=== PATIENT | female | born 1950 | race African-American/Black ===

== ENCOUNTER 2018-12-16 23:32 | Emergency (ER) | payer BC, OTHER ==
[2018-12-17 00:25] LABS: Absolute Lymphocytes (CBC) 2.7 K/uL (0.7-4.9); Absolute Monocytes 0.6 K/uL (0.1-1.3); Absolute Neutrophil 9.4 K/uL (1.8-8.0); Basophils % 0.7 % (0-1.3); Eosinophils % 2.4 % (0-4.4); Hematocrit 40.7 % (36.0-45.0); Lymphocytes % 20.4 % (15.3-44.8); MPV 10.5 fL (7.6-11.3); Monocytes % 4.7 % (3.3-12.3); RBC Red Blood Cell Count 4.55 M/uL (3.86-4.86)
[2018-12-17 00:26] LABS: Protime INR 0.89
[2018-12-17] MEDS ORDERED: ONDANSETRON 4 MG/2 ML VIAL ONE (00:29)
[2018-12-17] MEDS ORDERED: MEPERIDINE HCL 50 MG/ML AMP ONE (00:29)
[2018-12-17 00:55] LABS: ALT/SGPT 17 U/L (12-78); AST/SGOT 14 U/L (15-37); Albumin 3.5 g/dL (3.4-5.0); Alkaline Phosphatase 100 U/L (45-117); BUN Blood Urea Nitrogen 15 mg/dL (7-18); Bicarbonate 25 mmol/L (21-32); Bilirubin Direct < 0.1 mg/dL (0-0.2); Bilirubin Total 0.2 mg/dL (0.2-1.0); Glucose Level 46 mg/dL (74-106); Magnesium 1.7 mg/dL (1.8-2.4); NT PRO-BNP 50 pg/mL (<125); Potassium 3.2 mmol/L (3.5-5.1); Protein, Total 7.1 g/dL (6.4-8.2); Sodium Level 144 mmol/L (136-145); Troponin (Emerg Dept Use Only) < 0.02 ng/mL (0.0-0.045)
[2018-12-17] MEDS ORDERED: D50W 25 GM/50 ML SYRINGE IV ONE (01:11)
[2018-12-17] MEDS ORDERED: POTASSIUM CL SA 10 MEQ TAB PO ONE (01:27)
--- NOTE | 2018-12-17 02:21 | EDPHYS ---
Physician Documentation [facility] Name: Dinorah Riddle Age: 68 yrs Sex: Female : 1950 Arrival Date: 12/16/2018 Time: 23:32 Bed 28 Private MD: Olivier Fuentes ED Physician Luis Enrique Street HPI: 12/17 00:03 This 68 yrs old Black Female presents to ER via Wheelchair with complaints of Chest pkl Tightness, High Blood Pressure. 00:03 The patient or guardian reports chest pain that is located primarily in the substernal pkl area. Onset: just prior to arrival. The pain does not radiate. Associated signs and symptoms: Pertinent positives: cough, headache. The chest pain is described as tightness. Historical: - Allergies: 12/16 23:38 Codeine; aa1 - Home Meds: 23:38 Metformin Oral [Active]; glyburide Oral [Active]; losartan oral oral [Active]; aa1 Triamterene-Hydrochlorothiazid Oral [Active]; - PMHx: 23:38 Hypertension; Diabetes - NIDDM; Lupus; Rheumatoid Arthritis; aa1 - PSHx: 23:38 left ovary removed; D\T\C; Carpal Tunnel Repair; aa1 - Immunization history:: Flu vaccine is up to date. - Social history:: Smoking status: Patient uses tobacco products, denies chronic smoking, but will smoke occasionally. - Ebola Screening: : No symptoms or risks identified at this time. ROS: 12/17 00:03 Eyes: Negative for injury, pain, redness, and discharge, ENT: Negative for injury, pkl pain, and discharge, Neck: Negative for injury, pain, and swelling. Cardiovascular: Positive for chest pain. Respiratory: Positive for cough, with no reported sputum. Abdomen/GI: Negative for abdominal pain, nausea, vomiting, and diarrhea. Back: Negative for injury or acute deformity. : Negative for urinary symptoms. MS/extremity: Negative for acute changes. Skin: Negative for rash. Neuro: Negative for altered mental status. Exam: 00:03 Head/Face: Normocephalic, atraumatic. Eyes: Pupils equal round and reactive to light, pkl extra-ocular motions intact. Lids and lashes normal. Conjunctiva and sclera are non-icteric and not injected. Cornea within normal limits. Periorbital areas with no swelling, redness, or edema. ENT: Nares patent. No nasal discharge, no septal abnormalities noted. Tympanic membranes are normal and external auditory canals are clear. Oropharynx with no redness, swelling, or masses, exudates, or evidence of obstruction, uvula midline. Mucous membranes moist. Neck: Trachea midline, no thyromegaly or masses palpated, and no cervical lymphadenopathy. Supple, full range of motion without nuchal rigidity, or vertebral point tenderness. No Meningismus. Chest/axilla: Normal chest wall appearance and motion. Nontender with no deformity. No lesions are appreciated. Cardiovascular: Regular rate and rhythm with a normal S1 and S2. No gallops, murmurs, or rubs. Normal PMI, no JVD. No pulse deficits. Respiratory: Lungs have equal breath sounds bilaterally, clear to auscultation and percussion. No rales, rhonchi or wheezes noted. No increased work of breathing, no retractions or nasal flaring. Abdomen/GI: Soft, non-tender, with normal bowel sounds. No distension or tympany. No guarding or rebound. No evidence of tenderness throughout. Back: No spinal tenderness. No costovertebral tenderness. Full range of motion. Skin: Warm, dry with normal turgor. Normal color with no rashes, no lesions, and no evidence of cellulitis. MS/ Extremity: Pulses equal, no cyanosis. Neurovascular intact. Full, normal range of motion. Neuro: Awake and alert, GCS 15, oriented to person, place, time, and situation. Cranial nerves II-XII grossly intact. Motor strength 5/5 in all extremities. Sensory grossly intact. Cerebellar exam normal. Normal gait. Vital Signs: 12/16 23:38 BP 141 / 86; Pulse 105; Resp 18; Temp 97.4; Pulse Ox 97% on R/A; Weight 81.65 kg; aa1 Height 5 ft. 2 in. (157.48 cm); Pain 6/10; 12/17 01:04 BP 129 / 78; Pulse 75; Resp 18; Temp 98.8(O); Pulse Ox 99% on R/A; mg2 02:46 BP 122 / 78; Pulse 80; Resp 18; Temp 98.5; Pulse Ox 100% on R/A; Pain 0/10; mg2 12/16 23:38 Body Mass Index 32.92 (81.65 kg, 157.48 cm) aa MDM: 12/16 23:41 Patient medically screened. pkl 12/17 02:18 Data reviewed: vital signs, nurses notes, lab test result(s), EKG, radiologic studies, pkl plain films. 02:22 ED course: Patient feeling better. Advised to hold ( Glyburide ) regarding hypoglycemic pkl tendency. To follow up with Dr. Fuentes in 1 to 2 days for further evaluations. Patient understood instructions. 12/16 23:40 Order name: Basic Metabolic Panel aa 12/16 23:40 Order name: CBC with Diff; Complete Time: 01:04 aa 12/16 23:40 Order name: LFT's; Complete Time: 01:04 aa 12/16 23:40 Order name: Magnesium; Complete Time: 01:04 aa 12/16 23:40 Order name: NT PRO-BNP; Complete Time: 01:04 aa 12/16 23:40 Order name: PT-INR; Complete Time: 01:04 aa 12/16 23:40 Order name: Troponin (emerg Dept Use Only); Complete Time: 01:04 aa1 12/16 23:40 Order name: XRAY Chest (1 view) aa 12/16 23:41 Order name: Basic Metabolic Panel; Complete Time: 01:04 EDMS 12/17 01:11 Order name: Troponin (emerg Dept Use Only); Complete Time: 02:17 mg2 12/17 02:46 Order name: Glucose, Ancillary Testing; Complete Time: 02:58 EDMS 12/17 02:46 Order name: Glucose, Ancillary Testing EDMS 12/17 02:46 Order name: Glucose, Ancillary Testing; Complete Time: 02:58 EDMS 12/16 23:40 Order name: EKG; Complete Time: 23:41 aa12/16 23:40 Order name: Cardiac monitoring; Complete Time: 00:39 aa 12/16 23:40 Order name: EKG - Nurse/Tech; Complete Time: 00:39 aa 12/16 23:40 Order name: IV Saline Lock; Complete Time: 00:11 aa12/16 23:40 Order name: Labs collected and sent; Complete Time: 00:11 aa12/16 23:40 Order name: O2 Per Protocol; Complete Time: 00:11 12/16 23:40 Order name: O2 Sat Monitoring; Complete Time: 00:12 aa12/17 01:11 Order name: EKG - Nurse/Tech; Complete Time: :34 mg2 Administered Medications: 00:15 Drug: Demerol 50 mg Route: IVP; Site: left forearm; mg2 02:12 Follow up: Response: No adverse reaction; Marked relief of symptoms mg2 00:15 Drug: Zofran 4 mg Route: IVP; Site: left forearm; mg2 02:12 Follow up: Response: No adverse reaction; Marked relief of symptoms mg2 01:07 Drug: D50W 25 ml Route: IVP; Site: left forearm; mg2 02:12 Follow up: Response: No adverse reaction; Blood sugar is elevated mg2 01:34 Drug: K-Dur 40 mEq Route: PO; mg2 02:12 Follow up: Response: No adverse reaction mg2 02:45 Drug: D50W 25 ml Route: IVP; Site: left forearm; mg2 02:45 Follow up: Response: No adverse reaction; Medication administered at discharge. mg2 Point of Care Testing: Blood Glucose: 01:04 Blood Glucose: 44 mg/dL; mg2 01:04 Blood Glucose: 120 mg/dL; mg2 02:46 Blood Glucose: 80 mg/dL; mg2 Ranges: Critical Glucose Levels:Adult <50 mg/dl or >400 mg/dl <40 mg/dl or >180 mg/dl Disposition: 12/17/18 02:20 Discharged to Home. Impression: Chest pain. Acute headache. Sinusitis. Hypogycemia. - Condition is Stable. - Prescriptions for Augmentin 875- 125 mg Oral Tablet - take 1 tablet by ORAL route every 12 hours for 10 days; 20 tablet. Ultram 50 mg Oral Tablet - take 1 tablet by ORAL route every 8 hours As needed; 20 tablet. - Medication Reconciliation Form, Thank You Letter, Antibiotic Education, Prescription Opioid Use form. - Follow up: Olivier Fuentes MD; When: 1 - 2 days; Reason: Re-evaluation by your physician. - Problem is new. - Symptoms have improved. Signatures: Dispatcher [employer] EDKasey Daniels RN RN aa1 Luis Enrique Street MD MD pkl Gardose, Oz, RN RN mg2 Corrections: (The following items were deleted from the chart) 02:50 02:20 12/17/2018 02:20 Discharged to Home. Impression: Chest pain. Acute headache. mg2 Sinusitis. Hypogycemia. Condition is Stable. Forms are Medication Reconciliation Form, Thank You Letter, Antibiotic Education, Prescription Opioid Use. Follow up: Olivier Fuentes; When: 1 - 2 days; Reason: Re-evaluation by your physician. Problem is new. Symptoms have improved. pkl
--- NOTE | 2018-12-17 02:21 | ER ---
Nurse's Notes [facility] Name: Dinorah Riddle Age: 68 yrs Sex: Female : 1950 Arrival Date: 12/16/2018 Time: 23:32 Bed 28 Private MD: Olivier Fuentes Diagnosis: Chest pain. Acute headache. Sinusitis. Hypogycemia Presentation: 12/16 23:35 Presenting complaint: Patient states: cough and tightness in chest and head for past aa1 several days. Transition of care: patient was not received from another setting of care. Onset of symptoms was December 14, 2018. Risk Assessment: Do you want to hurt yourself or someone else? Patient reports no desire to harm self or others. Initial Sepsis Screen: Does the patient meet any 2 criteria? No. Patient's initial sepsis screen is negative. Does the patient have a suspected source of infection? No. Patient's initial sepsis screen is negative. Care prior to arrival: None. 23:35 Method Of Arrival: Wheelchair aa1 23:35 Acuity: KEVON 2 aa1 Triage Assessment: 23:38 General: Appears in no apparent distress. comfortable, Behavior is calm, cooperative, aa1 appropriate for age. Historical: - Allergies: 23:38 Codeine; aa1 - Home Meds: 23:38 Metformin Oral [Active]; glyburide Oral [Active]; losartan oral oral [Active]; aa1 Triamterene-Hydrochlorothiazid Oral [Active]; - PMHx: 23:38 Hypertension; Diabetes - NIDDM; Lupus; Rheumatoid Arthritis; aa1 - PSHx: 23:38 left ovary removed; D\T\C; Carpal Tunnel Repair; aa1 - Immunization history:: Flu vaccine is up to date. - Social history:: Smoking status: Patient uses tobacco products, denies chronic smoking, but will smoke occasionally. - Ebola Screening: : No symptoms or risks identified at this time. Screenin/07 00:48 Abuse screen: Denies threats or abuse. Denies injuries from another. Nutritional mg2 screening: No deficits noted. Tuberculosis screening: No symptoms or risk factors identified. Fall Risk IV access (20 points). Assessment: 00:44 General: Appears in no apparent distress. comfortable, Behavior is calm, cooperative. mg2 Pain: Complains of pain in chest Pain radiates to left arm Pain currently is 4 out of 10 on a pain scale. Quality of pain is described as aching, Pain began gradually, 2 hours ago. Is intermittent. Neuro: Level of Consciousness is awake, alert, obeys commands, Oriented to person, place, time, situation. Cardiovascular: Chest pain is described as mild, quality is pressure, is located in anterior radiates to left arm(s) began suddenly, 2 hours prior to arrival. Respiratory: Airway is patent Respiratory effort is even, unlabored, Respiratory pattern is regular, symmetrical. GI: Reports nausea. : No signs and/or symptoms were reported regarding the genitourinary system. EENT: No signs and/or symptoms were reported regarding the EENT system. Derm: Skin is intact, is healthy with good turgor, Skin is pink, warm \T\ dry. normal. Musculoskeletal: Circulation, motion, and sensation intact. Capillary refill < 3 seconds. 02:13 Reassessment: Patient appears in no apparent distress at this time. Patient and/or mg2 family updated on plan of care and expected duration. Pain level reassessed. Patient is alert, oriented x 3, equal unlabored respirations, skin warm/dry/pink. 02:49 Reassessment: Patient states feeling better. Patient states symptoms have improved. mg2 Vital Signs: 12/16 23:38 BP 141 / 86; Pulse 105; Resp 18; Temp 97.4; Pulse Ox 97% on R/A; Weight 81.65 kg; aa1 Height 5 ft. 2 in. (157.48 cm); Pain 6/10; 12/17 01:04 BP 129 / 78; Pulse 75; Resp 18; Temp 98.8(O); Pulse Ox 99% on R/A; mg2 02:46 BP 122 / 78; Pulse 80; Resp 18; Temp 98.5; Pulse Ox 100% on R/A; Pain 0/10; mg2 12/16 23:38 Body Mass Index 32.92 (81.65 kg, 157.48 cm) aa1 ED Course: 12/16 23:32 Patient arrived in ED. ds1 23:33 Olivier Fuentes MD is Private Physician. ds1 23:36 Triage completed. aa1 23:38 Arm band placed on right wrist. Patient placed in an exam room, on a stretcher. aa1 23:[address] MD is Attending Physician. pkl 23:45 Oz Gonzalez RN is Primary Nurse. mg2 05/07 00:02 XRAY Chest (1 view) In Process Unspecified. EDMS 00:11 CBC with Diff Sent. mg2 00:48 No provider procedures requiring assistance completed. Inserted saline lock: 22 gauge mg2 in left forearm, using aseptic technique. Blood collected. Patient maintains SpO2 saturation greater than 95% on room air. 00:49 Patient has correct armband on for positive identification. Pulse ox on. NIBP on. mg2 02:19 Olivier Fuentes MD is Referral Physician. pkl 02:49 IV discontinued, intact, bleeding controlled, No redness/swelling at site. Pressure mg2 dressing applied. Administered Medications: 00:15 Drug: Demerol 50 mg Route: IVP; Site: left forearm; mg2 02:12 Follow up: Response: No adverse reaction; Marked relief of symptoms mg2 00:15 Drug: Zofran 4 mg Route: IVP; Site: left forearm; mg2 02:12 Follow up: Response: No adverse reaction; Marked relief of symptoms mg2 01:07 Drug: D50W 25 ml Route: IVP; Site: left forearm; mg2 02:12 Follow up: Response: No adverse reaction; Blood sugar is elevated mg2 01:34 Drug: K-Dur 40 mEq Route: PO; mg2 02:12 Follow up: Response: No adverse reaction mg2 02:45 Drug: D50W 25 ml Route: IVP; Site: left forearm; mg2 02:45 Follow up: Response: No adverse reaction; Medication administered at discharge. mg2 Point of Care Testing: Blood Glucose: 01:04 Blood Glucose: 44 mg/dL; mg2 01:04 Blood Glucose: 120 mg/dL; mg2 02:46 Blood Glucose: 80 mg/dL; mg2 Ranges: Outcome: 02:20 Discharge ordered by . pkl 02:49 Discharged to home ambulatory, with family. mg2 02:49 Condition: stable 02:49 Discharge instructions given to patient, family, Instructed on discharge instructions, follow up and referral plans. medication usage, Demonstrated understanding of instructions, follow-up care, medications, Prescriptions given X 2. 02:50 Patient left the ED. mg2 Signatures: Dispatcher [employer] EDMS Kasey Flores RN RN aa1 Luis Enrique Street MD MD pkl Sanford, Demi ds1 Oz Gonzalez, RN RN mg2
[2018-12-17 04:11] VITALS: BP 122/78; TEMP 98.5; O2SAT 100
--- NOTE | 2018-12-17 07:16 | RAD REPORT ---
EXAM DESCRIPTION: RAD - Chest Single View - 12/17/2018 12:01 am CLINICAL HISTORY: Cough and congestion, chest pain COMPARISON: August 2014 TECHNIQUE: AP portable chest image was obtained 2358 hours . FINDINGS: Lungs are clear. Heart and vasculature are normal. No measurable pleural effusion and no p neumothorax. No acute bony abnormality seen. No acute aortic findings suspected. IMPRESSION: No acute cardiopulmonary process. No suspicious change from comparison.
--- NOTE | 2018-12-17 18:26 | EKG ---
Test Date: 2018-12-17 Test Time: 01:29:25 Gumming Machine Operator: MEASUREMENT RESULTS: Intervals: Rate: 82 MT: 168 QRSD: 74 QT: 382 QTc: 446 [place]: P: 60 MT: 168 QRS: -5 T: 28 INTERPRETIVE STATEMENTS: Normal sinus rhythm Normal ECG Compared to ECG 12/17/2018 00:05:55 No significant changes Electronically Signed On 12-17-18 18:23:51 CDT by Ramana Ferreira
--- NOTE | 2018-12-17 18:27 | EKG ---
Test Date: 2018-12-17 Test Time: 00:05:55 Statement Clerks Manager: MEASUREMENT RESULTS: Intervals: Rate: 98 MT: 178 QRSD: 84 QT: 370 QTc: 472 [place]: P: 68 MT: 178 QRS: 6 T: 45 INTERPRETIVE STATEMENTS: Normal sinus rhythm Normal ECG Compared to ECG 03/28/2013 18:21:55 No significant changes Electronically Signed On 12-17-18 18:23:53 CDT by Ramana Ferreira
== END 2018-12-17 02:50 | disposition home or self-care (01) ==
LOC: ER 23:32
DX: J32.9 Chronic sinusitis, unspecified (principal); R51 Headache; E11.649 Type 2 diabetes mellitus with hypoglycemia without coma; I10 Essential (primary) hypertension; Z72.0 Tobacco use; Z88.5 Allergy status to narcotic agent
CPT/HCPCS: 93005 ×2; 85025; 80048; 36415; 83735; 85610; 82962 ×3; 80076; 84484 ×2; 83880; 71045; 96375; 96374; 99284; J2175; J2405

== ENCOUNTER 2019-10-26 22:18 | Emergency (ER) | payer OTHER ==
[2019-10-26] MEDS ORDERED: dexAMETHasone 10 MG/ML VIAL ONE (23:10)
[2019-10-26] MEDS ORDERED: FAMOTIDINE 20 MG/2 ML VIAL IV ONE (23:11)
[2019-10-26 23:13] LABS: Absolute Lymphocytes (CBC) 3.4 K/uL (0.7-4.9); Basophils % 0.7 % (0-1.3); Hematocrit 42.2 % (36.0-45.0); Lymphocytes % 65.6 % (15.3-44.8); MPV 10.7 fL (7.6-11.3); Protime INR 0.97; RBC Red Blood Cell Count 4.62 M/uL (3.86-4.86)
[2019-10-26 23:33] LABS: ALT/SGPT 22 U/L (12-78); AST/SGOT 12 U/L (15-37); Albumin 3.4 g/dL (3.4-5.0); Alkaline Phosphatase 100 U/L (45-117); BUN Blood Urea Nitrogen 18 mg/dL (7-18); Bicarbonate 26 mmol/L (21-32); Bilirubin Direct < 0.1 mg/dL (0-0.2); Bilirubin Total 0.1 mg/dL (0.2-1.0); Glucose Level 176 mg/dL (74-106); Magnesium 1.8 mg/dL (1.8-2.4); NT PRO-BNP 11 pg/mL (<125); Potassium 3.6 mmol/L (3.5-5.1); Protein, Total 7.1 g/dL (6.4-8.2); Sodium Level 143 mmol/L (136-145); Troponin (Emerg Dept Use Only) < 0.02 ng/mL (0.0-0.045)
[2019-10-27 00:01] LABS: Blood Morphology Comment NOTED (NOT SEEN); Platelet Estimate ADEQ; Target Cells 1+
--- NOTE | 2019-10-27 00:01 | ER ---
Nurse's Notes [facility] Name: Dinorah Riddle Age: 69 yrs Sex: Female : 1950 Arrival Date: 10/26/2019 Time: 22:18 Bed 16 Private MD: Diagnosis: Chest pain, unspecified;Allergy to seafood-shrimp;Candidiasis Presentation: 10/25 22:29 Chief complaint: Patient states: she started having chest pressure and tightening of bb her throat after eating some shrimp she took an antihistamine but it is not helping she feels like she is having difficulty breathing. Coronavirus screen: The patient has NOT traveled to a country currently being monitored by the [facility] within the last 14 days. Proceed with normal triage procedures. Ebola Screen: No symptoms or risks identified at this time. Initial Sepsis Screen: Does the patient meet any 2 criteria? No. Patient's initial sepsis screen is negative. Does the patient have a suspected source of infection? No. Patient's initial sepsis screen is negative. Risk Assessment: Do you want to hurt yourself or someone else? Patient reports no desire to harm self or others. Onset of symptoms was October 26, 2019. 22:29 Method Of Arrival: Ambulatory bb 22:29 Acuity: KEVON 2 bb Historical: - Allergies: 22:33 Codeine; bb 22:33 shrimp; bb - Home Meds: 22:33 Metformin Oral [Active]; Ozempic [Active]; telmisartan oral oral [Active]; Naproxen bb Oral [Active]; Antihistamine oral oral [Active]; vitamins [Active]; - PMHx: 22:33 Diabetes - NIDDM; Hypertension; Lupus; Rheumatoid Arthritis; bb - PSHx: 22:33 left ovary removed; D\T\C; Carpal Tunnel Repair; bb - Immunization history:: Adult Immunizations up to date. - Social history:: Smoking status: Patient reports the use of cigarette tobacco products, smokes one-half pack cigarettes per day. Screenin:30 Abuse screen: Denies threats or abuse. Denies injuries from another. Abuse screen:. aa1 Nutritional screening: No deficits noted. Tuberculosis screening: No symptoms or risk factors identified. Fall Risk None identified. Assessment: 22:30 General: Appears in no apparent distress. comfortable, Behavior is calm, cooperative, aa1 appropriate for age. Pain: Complains of pain in chest Pain does not radiate. Pain currently is 2 out of 10 on a pain scale. Quality of pain is described as heavy, Pain began suddenly. Neuro: Level of Consciousness is awake, alert, obeys commands, Oriented to person, place, time, situation, Moves all extremities. Full function Speech is normal. Cardiovascular: Reports chest pain, shortness of breath, Denies diaphoresis, fatigue, lightheadedness, nausea, palpitations, Heart tones S1 S2 present Capillary refill < 3 seconds Clubbing of nail beds is absent JVD is absent Patient's skin is warm and dry. Rhythm is regular Chest pain is described as mild, quality is heaviness, is located in anterior chest wall. Respiratory: Reports shortness of breath at rest Airway is patent Respiratory effort is even, unlabored, Respiratory pattern is regular, symmetrical, Breath sounds are clear bilaterally. the patient has mild shortness of breath. GI: No signs and/or symptoms were reported involving the gastrointestinal system. : No signs and/or symptoms were reported regarding the genitourinary system. EENT: Throat is clear. Derm: Skin is intact, is healthy with good turgor, Skin is pink, warm \T\ dry. Musculoskeletal: Capillary refill < 3 seconds. 23:30 Reassessment: Patient appears in no apparent distress at this time. Patient and/or aa1 family updated on plan of care and expected duration. Pain level reassessed. Patient is alert, oriented x 3, equal unlabored respirations, skin warm/dry/pink. Awaiting lab results Patient states symptoms have improved. 10/26 00:20 Reassessment: Patient appears in no apparent distress at this time. Patient is alert, aa1 oriented x 3, equal unlabored respirations, skin warm/dry/pink. Discussed d/c \T\ f/u instructions with pt; denies questions or concerns at this time. Ambulatory to lobby with steady gait Patient denies pain at this time. Patient states feeling better. Vital Signs: 10/25 22:29 BP 130 / 76; Pulse 94; Resp 16 S; Temp 98.4(O); Pulse Ox 97% on R/A; Weight 80.74 kg bb (R); Height 5 ft. 1 in. (154.94 cm) (R); Pain 0/10; 23:30 BP 115 / 71; Pulse 96; Resp 18; Pulse Ox 97% on R/A; Pain 0/10; aa1 10/26 00:20 BP 135 / 77; Pulse 90; Resp 16; Temp 98.0; Pulse Ox 99% on R/A; Pain 0/10; aa1 10/25 22:29 Body Mass Index 33.63 (80.74 kg, 154.94 cm) bb ED Course: 10/25 22:18 Patient arrived in ED. cl3 22:23 Yevgeniy Delaney, JEMAL is PHCP. pm1 22:24 Ralf Benjamin MD is Attending Physician. pm1 22:26 EKG done, by ED staff, reviewed by Yevgeniy Delaney NP. mb4 22:30 Patient maintains SpO2 saturation greater than 95% on room air. aa1 22:30 Patient has correct armband on for positive identification. Placed in gown. Bed in low aa1 position. Call light in reach. utility plant operative on. Pulse ox on. NIBP on. Warm blanket given. 22:31 Triage completed. bb 22:33 Arm band placed on Patient placed in an exam room, on a stretcher, on pulse oximetry. bb EKG completed in triage. Results shown to MD. Family accompanied patient. 22:42 Kasey Flores, SULEMA is Primary Nurse. aa1 22:47 XRAY Chest (1 view) In Process Unspecified. EDMS 22:55 Missed attempt(s): 22 gauge in left antecubital area. Bleeding controlled, band aid aa1 applied, catheter tip intact. 23:00 Initial lab(s) drawn, by me, sent to lab. Inserted saline lock: 22 gauge in left hand, aa1 using aseptic technique. Blood collected. 10/26 00:20 No provider procedures requiring assistance completed. IV discontinued, intact, aa1 bleeding controlled, No redness/swelling at site. Pressure dressing applied. Administered Medications: 10/25 23:10 Drug: Decadron - Dexamethasone 10 mg Route: IVP; Site: left hand; aa1 10/26 00:19 Follow up: Response: No adverse reaction; Marked relief of symptoms aa1 10/25 23:14 Drug: Pepcid 20 mg Route: IVP; Site: left hand; aa1 10/26 00:17 Follow up: Response: No adverse reaction; Marked relief of symptoms aa1 10/25 23:14 Not Given (Patient Refused): Benadryl 25 mg IVP once aa1 Outcome: 23:58 Discharge ordered by . pm1 10/26 00:20 Discharged to home ambulatory. aa1 Condition: good Discharge instructions given to patient, Instructed on discharge instructions, follow up and referral plans. medication usage, Demonstrated understanding of instructions, follow-up care, medications, Prescriptions given X 4. 00:45 Patient left the ED. aa1 Signatures: Dispatcher [employer] EDMS Kasey Flores RN RN aa1 Chasidy Josue RN RN Yevgeniy Harvey, MAIL READER MAIL READER pm1 Katharine Schaefer mb4 Abram Lara cl3
--- NOTE | 2019-10-27 00:02 | EDPHYS ---
Physician Documentation [facility] Name: Dinorah Riddle Age: 69 yrs Sex: Female : 1950 Arrival Date: 10/26/2019 Time: 22:18 Bed 16 Private MD: ED Physician Ralf Benjamin HPI: 10/25 22:38 This 69 yrs old Black Female presents to ER via Ambulatory with complaints of Chest pm1 Pain, Shortness Of Breath. 22:38 The patient or guardian reports chest pain that is located primarily in the mid-sternal pm1 area. Onset: 30 minute(s) ago. The pain does not radiate. Associated signs and symptoms: Pertinent positives: cough, Sore throat with shortness of breath, Pertinent negatives: abdominal pain, diaphoresis, dizziness, headache, nausea, vomiting. The chest pain is described as a pressure. Duration: The patient or guardian reports a single episode, that is still ongoing. Modifying factors: the symptoms are aggravated by Two pieces of shrimp that she is allergic to. Patient pre loaded with Benadryl prior to eating the shrimp. The patient has experienced similar episodes in the past, a few times. Historical: - Allergies: 22:33 Codeine; bb 22:33 shrimp; bb - Home Meds: 22:33 Metformin Oral [Active]; Ozempic [Active]; telmisartan oral oral [Active]; Naproxen bb Oral [Active]; Antihistamine oral oral [Active]; vitamins [Active]; - PMHx: 22:33 Diabetes - NIDDM; Hypertension; Lupus; Rheumatoid Arthritis; bb - PSHx: 22:33 left ovary removed; D\T\C; Carpal Tunnel Repair; bb - Immunization history:: Adult Immunizations up to date. - Social history:: Smoking status: Patient reports the use of cigarette tobacco products, smokes one-half pack cigarettes per day. ROS: 22:42 Constitutional: Negative for fever, chills, and weight loss. pm1 22:42 Neck: Negative for injury, pain, and swelling. 22:42 Abdomen/GI: Negative for abdominal pain, nausea, vomiting, diarrhea, and constipation, Back: Negative for injury and pain, MS/Extremity: Negative for injury and deformity. 22:42 Neuro: Negative for headache, weakness, numbness, tingling, and seizure. 22:42 ENT: Positive for sore throat, Negative for drainage from ear(s), ear pain, difficulty swallowing, difficulty handling secretions, hoarseness. 22:42 Cardiovascular: Positive for chest pain, of the mid-sternal area, Negative for edema, orthopnea, palpitations. 22:42 Respiratory: Positive for shortness of breath, Negative for cough, wheezing. 22:42 Skin: Positive for rash, of the groin. Exam: 22:42 Constitutional: This is a well developed, well nourished patient who is awake, alert, pm1 and in no acute distress. Head/Face: Normocephalic, atraumatic. Neck: Trachea midline, no thyromegaly or masses palpated, and no cervical lymphadenopathy. Supple, full range of motion without nuchal rigidity, or vertebral point tenderness. No Meningismus. Chest/axilla: Normal chest wall appearance and motion. Nontender with no deformity. No lesions are appreciated. Cardiovascular: Regular rate and rhythm with a normal S1 and S2. No gallops, murmurs, or rubs. Normal PMI, no JVD. No pulse deficits. Respiratory: Lungs have equal breath sounds bilaterally, clear to auscultation and percussion. No rales, rhonchi or wheezes noted. No increased work of breathing, no retractions or nasal flaring. Abdomen/GI: Soft, non-tender, with normal bowel sounds. No distension or tympany. No guarding or rebound. No evidence of tenderness throughout. Back: No spinal tenderness. No costovertebral tenderness. Full range of motion. MS/ Extremity: Pulses equal, no cyanosis. Neurovascular intact. Full, normal range of motion. 22:42 Neuro: Orientation: is normal, Mentation: is normal, Motor: is normal, moves all fours. 23:55 Skin: Appearance: normal except for affected area, consistent with Canidiasis, on the pm1 groin, Tom Snow RN. Vital Signs: 22:29 BP 130 / 76; Pulse 94; Resp 16 S; Temp 98.4(O); Pulse Ox 97% on R/A; Weight 80.74 kg bb (R); Height 5 ft. 1 in. (154.94 cm) (R); Pain 0/10; 23:30 BP 115 / 71; Pulse 96; Resp 18; Pulse Ox 97% on R/A; Pain 0/10; aa1 10/26 00:20 BP 135 / 77; Pulse 90; Resp 16; Temp 98.0; Pulse Ox 99% on R/A; Pain 0/10; [facility] 10/25 22:29 Body Mass Index 33.63 (80.74 kg, 154.94 cm) bb MDM: 10/25 22:26 Patient medically screened. pm1 23:51 Data reviewed: vital signs. Data interpreted: Pulse oximetry: on room air is 97 %. pm1 Interpretation: normal. 23:56 Counseling: I had a detailed discussion with the patient and/or guardian regarding: the pm1 historical points, exam findings, and any diagnostic results supporting the discharge/admit diagnosis, lab results, radiology results, the need for outpatient follow up, to return to the emergency department if symptoms worsen or persist or if there are any questions or concerns that arise at home. 10/25 22:26 Order name: Basic Metabolic Panel; Complete Time: 23:35 pm1 10/25 22:26 Order name: CBC with Diff; Complete Time: 00:04 pm1 10/25 22:26 Order name: LFT's; Complete Time: 23:35 pm1 10/25 22:26 Order name: Magnesium; Complete Time: 23:35 pm1 10/25 22:26 Order name: NT PRO-BNP; Complete Time: 23:35 pm1 10/25 22:26 Order name: PT-INR; Complete Time: 23:22 pm1 10/25 22:26 Order name: Troponin (emerg Dept Use Only); Complete Time: 23:35 pm1 10/25 22:26 Order name: XRAY Chest (1 view) pm1 10/25 22:26 Order name: EKG; Complete Time: 22:28 pm1 10/25 22:26 Order name: Cardiac monitoring; Complete Time: 23:16 pm1 10/25 23:14 Order name: Manual Differential; Complete Time: 00:04 EDMS 10/25 22:26 Order name: EKG - Nurse/Tech; Complete Time: 23:16 pm1 10/25 22:26 Order name: IV Saline Lock; Complete Time: 23:16 pm1 10/25 22:26 Order name: Labs collected and sent; Complete Time: 23:16 pm1 10/25 22:26 Order name: O2 Per Protocol; Complete Time: 23:16 pm1 10/25 22:26 Order name: O2 Sat Monitoring; Complete Time: 23:16 pm1 Administered Medications: 23:10 Drug: Decadron - Dexamethasone 10 mg Route: IVP; Site: left hand; aa1 10/26 00:19 Follow up: Response: No adverse reaction; Marked relief of symptoms aa1 10/25 23:14 Drug: Pepcid 20 mg Route: IVP; Site: left hand; aa1 10/26 00:17 Follow up: Response: No adverse reaction; Marked relief of symptoms aa1 10/25 23:14 Not Given (Patient Refused): Benadryl 25 mg IVP once aa1 Disposition: 10/26 04:26 Co-signature as Attending Physician, Ralf Benjamin MD I agree with the assessment and tw4 plan of care. Disposition: 10/26/19 23:58 Discharged to Home. Impression: Chest pain, unspecified, Allergy to seafood - shrimp, Candidiasis. - Condition is Stable. - Discharge Instructions: Nonspecific Chest Pain, Seafood Allergy, Skin Yeast Infection. - Prescriptions for Benadryl 25 mg Oral Capsule - take 1 capsule by ORAL route every 6 hours As needed; 30 tablet. Clotrimazole 1 % Topical Cream - Apply to affected area 1 application by TOPICAL route every 12 hours; 30 gram. Pepcid 20 mg Oral Tablet - take 1 tablet by ORAL route every 12 hours for 10 days; 20 tablet. Medrol (Ivan) 4 mg Oral Tablets, Dose Pack - take 1 tablet by ORAL route as directed - follow package instructions; 1 packet. - Medication Reconciliation Form, Thank You Letter, Antibiotic Education, Prescription Opioid Use form. - Follow up: Emergency Department; When: As needed; Reason: Worsening of condition. Follow up: Private Physician; When: 2 - 3 days; Reason: Recheck today's complaints, Continuance of care, Re-evaluation by your physician. - Problem is new. - Symptoms have improved. Signatures: Dispatcher [employer] EDKasey Daniels RN RN aa1 Chasidy Josue RN RN bb Yevgeniy Delaney, SUPERVISOR [employer] [employer] [facility] pm1 Ralf Benjamin MD MD tw4 Corrections: (The following items were deleted from the chart) 00:45 03/15 23:58 10/26/2019 23:58 Discharged to Home. Impression: Chest pain, unspecified; aa1 Allergy to seafood - shrimp; Candidiasis. Condition is Stable. Forms are Medication Reconciliation Form, Thank You Letter, Antibiotic Education, Prescription Opioid Use. Follow up: Emergency Department; When: As needed; Reason: Worsening of condition. Follow up: Private Physician; When: 2 - 3 days; Reason: Recheck today's complaints, Continuance of care, Re-evaluation by your physician. Problem is new. Symptoms have improved. pm1
[2019-10-27 01:22] VITALS: BP 135/77; TEMP 98; O2SAT 99
--- NOTE | 2019-10-27 06:55 | EKG ---
Test Date: 2019-10-26 Test Time: 22:26:13 Mutuel Cashier: RAJAT MEASUREMENT RESULTS: Intervals: Rate: 96 VA: 116 QRSD: 68 QT: 364 QTc: 459 [place]: P: 73 VA: 116 QRS: -7 T: 48 INTERPRETIVE STATEMENTS: Normal sinus rhythm Normal ECG Compared to ECG 12/17/2018 01:29:25 No significant changes Electronically Signed On 10-27-19 06:54:38 CDT by Ramana Ferreira
--- NOTE | 2019-10-27 08:34 | RAD REPORT ---
EXAM DESCRIPTION: RAD - Chest Single View - 10/26/2019 10:45 pm CLINICAL HISTORY: CHEST PAIN Chest pain. COMPARISON: Chest Single View dated 12/16/2018; CHEST SINGLE VIEW dated 09/09/2014; CHEST PA AND LAT 2 VIEW dated 11/19/2013; CHEST SINGLE VIEW dated 03/27/2013 FINDINGS: Portable technique limits examination quality. The lungs are grossly clear. The heart is normal in size. No displaced fractures. IMPRESSION: No acute intrathoracic process suspected.
== END 2019-10-27 00:45 | disposition home or self-care (01) ==
LOC: ER 22:18
DX: B37.9 Candidiasis, unspecified (principal); Z91.013 Allergy to seafood; I10 Essential (primary) hypertension; E11.9 Type 2 diabetes mellitus without complications; F17.210 Nicotine dependence, cigarettes, uncomplicated; Z88.5 Allergy status to narcotic agent
CPT/HCPCS: 93005; 85025; 80048; 36415; 83735; 85610; 80076; 84484; 83880; 71045; 96375; 96374; 99285; J1100

== ENCOUNTER → 2023-09-27 | Emergency (ER) | payer OTHER ==
--- OUTSIDE RECORDS SUMMARY | 2023-09-27 13:26 | XMS REPORT | Continuity of Care Document ---
Author Name Unknown Address [address] [facility] [address] [place] [address] [facility] thconnect Address [address] [facility] [place] [address] Care Team Providers Care Associate [employer] Name Role Phone PCP, PATIENT DOES NOT HAVE A Primary Care Physic leila Unavailable [email or web address] Attending Clinician JOÃO Baires Attending Clinician João Hoover MD Attending Clinician [phone] ARACELI CASSIDY Attending Clinician Unavailable [email or web address]_Topher Admitting Clinician Sina farmer Payers Payer Name Policy Type Policy Number Effective Date Expirati on Date Source [employer] [id number] 2020 00:00:00 Problems Condition Name Condition Details Condition Category Status Onset Date Resolution Date Last Treatment Date Treating Clinician Comments Source No known active problems No known active problems Disease [facility] Allergies, Adverse Reactions, Alerts Allergy Name Allergy Type Status Severity Reaction(s) Onset Date Inactive Date Treating Clinician Comments Source CODEINE DRUG INGREDI Active Hives 08-31 00:00: 00 [facility] Codeine Propensi ty to adverse reaction s Active Hives 08-31 00:00: 00 [facility] Social History Social Habit Start Date Stop Date Quantity Comments Source Exposure to SARS-CoV-2 (event) Not sure [facility] Tobacco use and exposure 2021-09-07 00:00:00 2021-09-07 00:00:00 Never used [facility] Sex Assigned At 1950 00:00:00 1950 00:00:00 [facility] Smoking Status Start Date Stop Date Source Unknown if ever smoked [facility] Medications Ordered Medication Name Filled Medication Name Start Date Stop Date Current Medication? Ordering Clinician Indication Dosage Frequency Signature (SIG) Comments Components Source benzonatate 100 mg capsule 08-31 00:00: 00 Yes 100mg Take 1 capsule by mouth 3 (three) times daily as needed for Cough. [facility] benzonatate 100 mg capsule 08-31 00:00: 00 Yes 100mg Take 1 capsule by mouth 3 (three) times daily as needed for Cough. [facility] benzonatate 100 mg capsule 08-31 00:00: 00 Yes 100mg Take 1 capsule by mouth 3 (three) times daily as needed for Cough. [facility] Vital Signs Vital Name Observation Time Observation Value Comments S ource Systolic blood pressure 2021-09-07 20:34:00 157 mm[Hg] [facility] Diastolic blood pressure 2021-09-07 20:34:00 81 mm[Hg] [facility] Heart rate 2021-09-07 20:34:00 77 /min [facility] Body height 2021-09-07 20:33:00 153.7 cm [facility] Body weight 2021-09-07 20:33:00 85.322 kg [facility] BMI 2021-09-07 20:33:00 36.13 kg/m2 [facility] Oxygen saturation in Arterial blood by Pulse oximetry 2021-09-07 20:33:00 99 /min [facility] Procedures Procedure Date / Time Performed Performing Clinicia n Source XR SHOULDER <2 VW LEFT 2021-09-07 20:41:00 João Watson [facility] Encounters Start Date/Time End Date/Time Encounter Type Admission Type Attending Clinicians Care Facility Care Department Encounter ID Source 2023-06-12 00:00:00 2023-06-12 00:00:00 Outpatient GC_GCBZW_Ka Porter [facility] [id number] [facility] 2021-09-21 00:00:00 2021-09-21 00:00:00 Outpatient R JOVANGISELEIG [facility] [id number] [facility] 2021-09-12 00:00:00 2021-09-12 00:00:00 Telephone João Watson [facility] [id number] [facility] 2021-09-07 14:33:46 2021-09-07 23:59:00 Outpatient R JOVAN JOÃO [facility] [id number] [facility] 2021-09-07 14:33:46 2021-09-07 23:59:00 Hospital Encounter João Watson [facility] [id number] [facility] 2021-09-07 13:45:00 2021-09-07 14:49:22 Outpatient R JOÃO WATSON [facility] [id number] [facility] 2021-09-07 13:45:00 2021-09-07 14:49:22 Office Visit WatsonJoão juarez [facility] [id number] [facility] 2020-09-18 16:10:00 2020-09-18 16:10:00 Outpatient ARACELI RICE [facility] [id number] [facility]
--- NOTE | 2023-09-27 14:41 | RAD REPORT ---
EXAM DESCRIPTION: CT - Head Brain Wo Cont - 09/27/2023 2:16 pm CLINICAL HISTORY: TRAUMA Trauma, head injury COMPARISON: Facial Bones W/ Mpr dated 09/27/2023 TECHNIQUE: All CT scans are performed using dose optimization technique as appropriate and may inclu de automated exposure control or mA/KV adjustment according to patient size. FINDINGS: No intracranial hemorrhage, hydrocephalus or extra-axial fluid collection.No areas of brai n edema or evidence of midline shift. The paranasal sinuses and mastoids are clear. The calvarium is intact. Small frontal scalp hematoma. IMPRESSION: No acute intracranial abnormality.
--- NOTE | 2023-09-27 14:44 | RAD REPORT ---
EXAM DESCRIPTION: CT - CTFB CLINICAL HISTORY: TRAUMA Trauma, facial pain and swelling COMPARISON: No comparisons TECHNIQUE: Axial 2 mm thick images of the face were obtained with sagittal and coronal reconstructio n images. All CT scans are performed using dose optimization technique as appropriate and may include automated exposure control or mA/KV adjustment according to patient size. FINDINGS: No acute facial bone fracture is seen.The mandible is intact. The globes and orbital contents are grossly unremarkable.The paranasal sinuses and mastoids are clear . Evidence of prior surgery involving the paranasal sinuses. IMPRESSION: Negative for facial bone fracture.
--- NOTE | 2023-09-27 15:45 | EDPHYS ---
Physician Documentation [facility] [place] Name: Dinorah Riddle Age: 73 yrs Sex: Female : 1950 Arrival Date: 09/27/2023 Time: 13:24 Bed DX5 Private MD: ED Physician Tremayne Will HPI: 09/27 14:17 This 73 yrs old Black Female presents to ER via Ambulatory with complaints of Head sb4 Injury-Adult. 14:17 Patient states that last night she ran into a pole on accident. She hit the center of sb4 her forehead. She denies any LOC or blood thinner. She states that she has felt like her vision has been blurry. She states the swelling in her forehead has gone down since last night, she has been icing it. Historical: - Allergies: 13:37 Codeine; ll1 13:37 shrimp; ll1 - PMHx: 13:37 Diabetes - NIDDM; Hypertension; Lupus; Rheumatoid Arthritis; ll1 - PSHx: 14:02 tubal ; hand SX for neuropthy; ll1 - Immunization history:: Adult Immunizations up to date. - Social history:: Smoking status: Patient/guardian denies using tobacco. ROS: 14:32 Constitutional: Negative for fever, chills, and weight loss, sb4 14:32 Neuro: Positive for headache, forehead swelling, 14:32 All other systems are negative, Exam: 14:32 Constitutional: This is a well developed, well nourished patient who is awake, alert, sb4 and in no acute distress. Eyes: Extra-ocular motions intact. Periorbital areas with no swelling, redness, or edema. ENT: Mucous membranes moist. Cardiovascular: Regular rate and rhythm with a normal S1 and S2. Respiratory: Lungs have equal breath sounds bilaterally, clear to auscultation and percussion. No rales, rhonchi or wheezes noted. No increased work of breathing, no retractions or nasal flaring. Abdomen/GI: Soft, non-tender, no distension. Skin: Warm, dry with normal turgor. Normal color with no rashes, no lesions, and no evidence of cellulitis. MS/ Extremity: Pulses equal, no cyanosis. Neurovascular intact. Full, normal range of motion. Neuro: Awake and alert, GCS 15, oriented to person, place, time, and situation. Motor strength 5/5 in all extremities. Sensory grossly intact. 14:32 Head/face: Noted is hematoma, that is moderate, of the forehead, Vital Signs: 14:02 BP 160 / 75; Pulse 70; Resp 17; Temp 97.5; Pulse Ox 99% ; Weight 83.46 kg; Height 5 ft. ll1 1 in. ; Pain 7/10; 15:51 BP 149 / 87; Pulse 61; Resp 18 S; Pulse Ox 99% on R/A; as6 14:02 Body Mass Index 34.77 (83.46 kg, 154.94 cm) ll1 14:02 Pain Scale: Adult ll1 [place] Coma Score: 14:02 Eye Response: spontaneous(4). Motor Response: obeys commands(6). Verbal Response: ll1 oriented(5). Total: 15. 14:32 Eye Response: spontaneous(4). Motor Response: obeys commands(6). Verbal Response: sb4 oriented(5). Total: 15. MDM: 14:00 Patient medically screened. sb4 14:32 Differential diagnosis: Contusion of head, Hematoma on head, Intracranial bleed- sb4 subdural, Concussion without LOC. cerebral contusion. 15:45 Data reviewed: vital signs, nurses notes, radiologic studies, and as a result, I will sb4 discharge patient. Counseling: I had a detailed discussion with the patient and/or guardian regarding the historical points, exam findings, and any diagnostic results supporting the discharge/admit diagnosis, radiology results, to return to the emergency department if symptoms worsen or persist or if there are any questions or concerns that arise at home. 09/27 14:07 Order name: Head Brain Wo Cont CT; Complete Time: 14:43 sb4 09/27 14:07 Order name: Facial Bones W/O Con CT; Complete Time: 14:47 sb4 09/27 14:07 Order name: Visual Acuity; Complete Time: 15:49 sb4 Administered Medications: No medications were administered Disposition Summary: 09/27/23 15:45 Discharge Ordered Notes: Location: Home sb4 Problem: new sb4 Symptoms: are unchanged sb4 Condition: Stable sb4 Diagnosis - Frontal scalp hematoma sb4 Followup: sb4 - With: Ryan Pinedo MD - When: 2 - 3 days - Reason: Further diagnostic work-up, Recheck today's complaints, Re-evaluation by your physician Discharge Instructions: - Discharge Summary Sheet sb4 - Hematoma, [id number] sb4 - Facial or Scalp Contusion, [id number]-vx-[id number] sb4 Forms: - Medication Reconciliation Form sb4 - Thank You Letter sb4 - Antibiotic Education sb4 - Prescription Opioid Use sb4 - Patient Portal Instructions sb4 - Leadership Thank You Letter sb4 Addendum: 09/28/2023 23:26 I was immediately available for consultation during this patient's visit. I did not e c2 personally see the patient or discuss the patient with the MALICK. . Signatures: Dispatcher [employer] Emmie Gustafson RN RN ll1 Lizet Gonzales PA-C PA-C sb4 Tremayne Will MD MD ec2
--- NOTE | 2023-09-27 15:45 | ER ---
Nurse's Notes [facility] [place] Name: Dinorah Riddle Age: 73 yrs Sex: Female : 1950 Arrival Date: 09/27/2023 Time: 13:24 Bed DX5 Private MD: Diagnosis: Frontal scalp hematoma Presentation: 09/27 14:02 Chief complaint: Patient states: Hit head on pole in her home last night. No LOC. ll1 Hematoma to forehead since. No N/V. Coronavirus screen: Vaccine status: Patient reports receiving the 2nd dose of the covid vaccine. Client denies travel out of the [place] in the last 14 days. At this time, the client does not indicate any symptoms associated with coronavirus-19. Ebola Screen: Patient denies travel to an Ebola-affected area in the 21 days before illness onset. Mechanism of Injury: The problem was sustained at home, resulted from a direct blow. Initial Sepsis Screen: Does the patient meet any 2 criteria? No. Patient's initial sepsis screen is negative. Does the patient have a suspected source of infection? No. Patient's initial sepsis screen is negative. Risk Assessment: Do you want to hurt yourself or someone else? Patient reports no desire to harm self or others. Onset of symptoms was September 26, 2023. 14:02 Method Of Arrival: Ambulatory ll1 14:02 Acuity: KEVON 3 ll1 Historical: - Allergies: 13:37 Codeine; ll1 13:37 shrimp; ll1 - PMHx: 13:37 Diabetes - NIDDM; Hypertension; Lupus; Rheumatoid Arthritis; ll1 - PSHx: 14:02 tubal ; hand SX for neuropthy; ll1 - Immunization history:: Adult Immunizations up to date. - Social history:: Smoking status: Patient/guardian denies using tobacco. Screenin:49 [facility] ED Fall Risk Assessment (Adult) Score/Fall Risk Level 0 - 2 = Low Risk. Abuse as6 screen: Denies threats or abuse. Denies injuries from another. Nutritional screening: No deficits noted. Tuberculosis screening: No symptoms or risk factors identified. Assessment: 15:50 General: Appears in no apparent distress. Behavior is calm, cooperative. Pain: as6 Complains of pain in forehead. Neuro: Level of Consciousness is awake, alert, obeys commands, Oriented to person, place, time, situation, Reports headache. Respiratory: Respiratory effort is even, unlabored, Respiratory pattern is regular, symmetrical. Vital Signs: 14:02 BP 160 / 75; Pulse 70; Resp 17; Temp 97.5; Pulse Ox 99% ; Weight 83.46 kg; Height 5 ft. ll1 1 in. ; Pain 7/10; 15:51 BP 149 / 87; Pulse 61; Resp 18 S; Pulse Ox 99% on R/A; as6 14:02 Body Mass Index 34.77 (83.46 kg, 154.94 cm) ll1 14:02 Pain Scale: Adult ll1 [place] Coma Score: 14:02 Eye Response: spontaneous(4). Motor Response: obeys commands(6). Verbal Response: ll1 oriented(5). Total: 15. 14:32 Eye Response: spontaneous(4). Motor Response: obeys commands(6). Verbal Response: sb4 oriented(5). Total: 15. ED Course: 13:25 Patient arrived in ED. rg4 13:38 Arm band placed on. ll1 13:47 Lizet Gonzales PA-C is PHCP. sb4 13:47 Tremayne Will MD is Attending Physician. sb4 14:04 Triage completed. ll1 14:17 Head Brain Wo Cont CT In Process Unspecified. EDMS 14:17 Facial Bones W/O Con CT In Process Unspecified. EDMS 15:45 Ryan Pinedo MD is Referral Physician. sb4 15:50 Bed in low position. Call light in reach. Provided Education on: follow up. as6 15:50 No provider procedures requiring assistance completed. Patient did not have IV access as6 during this emergency room visit. Administered Medications: No medications were administered Medication: 15:51 VIS not applicable for this client. as6 Outcome: 15:45 Discharge ordered by . sb4 15:50 Discharged to home ambulatory, with significant other, as6 15:50 Condition: stable 15:50 Discharge instructions given to patient, Instructed on discharge instructions, follow up and referral plans. Demonstrated understanding of instructions, follow-up care, 15:51 Patient left the ED. as6 Signatures: Dispatcher [employer] EDMS Gissel Purdy rg4 Emmie Lara RN RN ll1 Mustapha Patel RN RN as6 Lizet Gonzales, PA-C PA-C sb4
[2023-09-27 16:13] VITALS: BP 149/87; TEMP 97.5; O2SAT 99
== END ==
LOC: ER 13:24
DX: S00.03XA Contusion of scalp, initial encounter (principal); E11.9 Type 2 diabetes mellitus without complications; I10 Essential (primary) hypertension; Z88.5 Allergy status to narcotic agent; Z91.013 Allergy to seafood
CPT/HCPCS: 70450; 70486; 76377; 99282

== ENCOUNTER 2023-11-25 01:25 | Emergency (ER) | payer OTHER ==
--- OUTSIDE RECORDS SUMMARY | 2023-11-25 01:27 | XMS REPORT | Continuity of Care Document ---
Author Name Unknown Address [address] [facility] [address] [place] [address] [facility] thconnect Address [address] 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 Name Role Phone PCP, PATIENT DOES NOT HAVE A Primary Care Physic leila Unavailable [email or web address] Attending Clinician JOÃO Baires Attending Clinician João Hoover MD Attending Clinician ARACELI CASSIDY Attending Clinician Unavailable [email or web address]_Karen_Topher Admitting Clinician Sina farmer Payers Payer Name Policy Type Policy Number Effective Date Expirati on Date Source [employer] [id number] 2020 00:00:00 Problems Condition Name Condition Details Condition Category Status Onset Date Resolution Date Last Treatment Date Treating Clinician Comments Source No known active problems No known active problems Disease [facility] Allergies, Adverse Reactions, Alerts Allergy Name Allergy Type Status Severity Reaction(s) Onset Date Inactive Date Treating Clinician Comments Source CODEINE DRUG INGREDI Active Hives 08-31 00:00: 00 [facility] Codeine Propensi ty to adverse reaction s Active Hives 08-31 00:00: 00 [facility] Social History Social Habit Start Date Stop Date Quantity Comments Source Exposure to SARS-CoV-2 (event) Not sure [facility] Tobacco use and exposure 2021-09-07 00:00:00 2021-09-07 00:00:00 Never used [facility] Sex Assigned At 1950 00:00:00 1950 00:00:00 [facility] Smoking Status Start Date Stop Date Source Unknown if ever smoked [facility] Medications Ordered Medication Name Filled Medication Name Start Date Stop Date Current Medication? Ordering Clinician Indication Dosage Frequency Signature (SIG) Comments Components Source benzonatate 100 mg capsule 08-31 00:00: 00 Yes 100mg Take 1 capsule by mouth 3 (three) times daily as needed for Cough. [facility] Vital Signs Vital Name Observation Time Observation Value Comments S dereck Systolic blood pressure 2021-09-07 20:34:00 157 mm[Hg] [facility] Diastolic blood pressure 2021-09-07 20:34:00 81 mm[Hg] [facility] Heart rate 2021-09-07 20:34:00 77 /min [facility] Body height 2021-09-07 20:33:00 153.7 cm [facility] Body weight 2021-09-07 20:33:00 85.322 kg [facility] BMI 2021-09-07 20:33:00 36.13 kg/m2 [facility] Oxygen saturation in Arterial blood by Pulse oximetry 2021-09-07 20:33:00 99 /min [facility] Procedures Procedure Date / Time Performed Performing Clinicia n Source XR SHOULDER <2 VW LEFT 2021-09-07 20:41:00 João Watson [facility] Encounters Start Date/Time End Date/Time Encounter Type Admission Type Attending Clinicians Care Facility Care Department Encounter ID Source 2023-06-12 00:00:00 2023-06-12 00:00:00 Outpatient [email or web address] diyala_S [facility] [id number] [facility] 2021-09-21 00:00:00 2021-09-21 00:00:00 Outpatient R JOÃO WATSON [facility] [id number] [facility] 2021-09-12 00:00:00 2021-09-12 00:00:00 Telephone João Watson [facility] [id number] [facility] 2021-09-07 14:33:46 2021-09-07 23:59:00 Outpatient R JOÃO WATSON [facility] [id number] [facility] 2021-09-07 14:33:46 2021-09-07 23:59:00 Hospital Encounter João Watson [facility] [id number] [facility] 2021-09-07 13:45:00 2021-09-07 14:49:22 Outpatient R JOÃO WATSON [facility] [id number] [facility] 2021-09-07 13:45:00 2021-09-07 14:49:22 Office Visit João Watson [facility] [id number] [facility] 2020-09-18 16:10:00 2020-09-18 16:10:00 Outpatient ARACELI RICE [facility] [id number] [facility]
[2023-11-25] MEDS ORDERED: DIPHENHYDRAMINE 50 MG/ML VIAL ONE (01:58)
[2023-11-25] MEDS ORDERED: METOCLOPRAMIDE 10 MG/2mL INJ ONE (01:58)
[2023-11-25] MEDS ORDERED: KETOROLAC 30 MG/ML INJ ONE (01:58)
[2023-11-25] MEDS ORDERED: NA CHLORIDE 0.9% 1,000 ML ONE (01:58)
[2023-11-25 02:04] LABS: Absolute Basophils 0.2 K/uL (0-0.5); Absolute Eosinophils 0.3 K/uL (0-0.5); Absolute Lymphocytes (CBC) 4.7 K/uL (0.7-4.9); Absolute Monocytes 0.7 K/uL (0.1-1.3); Absolute Neutrophil 3.3 K/uL (1.8-8.0); Basophils % 1.8 % (0-1.3); Eosinophils % 3.2 % (0-4.4); Hematocrit 40.1 % (36.0-45.0); Hemoglobin 13.2 g/dL (12.0-15.0); Lymphocytes % 51.6 % (15.3-44.8); MCH 29.9 pg (27.0-35.0); MCHC 32.9 g/dL (32.0-36.0); MCV 90.8 fL (80-100); MPV 10.4 fL (7.6-11.3); Monocytes % 7.2 % (3.3-12.3); Neutrophils % 36.2 % (41.7-73.7); Nucleated Red Blood Cells % 0.1 % (0-0); Platelets 219 thou/uL (152-406); RBC Red Blood Cell Count 4.42 M/uL (3.86-4.86); Red Cell Distribution Width 15.3 % (12.1-15.2)
[2023-11-25 02:29] LABS: Anion Gap 10.8 mEq/L (5.0-15.0); Potassium 5.3 mEq/L (3.5-5.1)
--- NOTE | 2023-11-25 02:48 | ER ---
Nurse's Notes [facility] Name: Dinorah Riddle Age: 73 yrs Sex: Female : 1950 Arrival Date: 11/25/2023 Time: 01:25 Bed 3 Private MD: Diagnosis: Headache;Other secondary hypertension Presentation: 11/24 01:39 Chief complaint: Patient states: got up from falling asleep in the couch, sudden onset rv of tightness on the back of the head down to the back of the neck. denies chest pain. checked blood pressure and it reads 180s systolic. Coronavirus screen: At this time, the client does not indicate any symptoms associated with coronavirus-19. Ebola Screen: No symptoms or risks identified at this time. Initial Sepsis Screen: Does the patient meet any 2 criteria? No. Patient's initial sepsis screen is negative. Does the patient have a suspected source of infection? No. Patient's initial sepsis screen is negative. Risk Assessment: Do you want to hurt yourself or someone else? Patient reports no desire to harm self or others. Onset of symptoms was November 25, 2023. 01:39 Method Of Arrival: Ambulatory rv 01:39 Acuity: KEVON 3 rv Triage Assessment: 01:41 Headache History: Denies prior headaches. General: Appears comfortable, Behavior is rv calm, cooperative. Pain: Complains of pain in head Pain Pain began suddenly, Also complains of no other associated symptoms. Neuro: Level of Consciousness is awake, alert, obeys commands, Oriented to person, place, time, situation. Cardiovascular: Capillary refill < 3 seconds Patient's skin is warm and dry. Respiratory: Airway is patent Respiratory effort is even, unlabored. GI: No signs and/or symptoms were reported involving the gastrointestinal system. : No signs and/or symptoms were reported regarding the genitourinary system. Derm: Skin is healthy with good turgor. Historical: - Allergies: : shrimp; rv : Codeine; rv - PMHx: :41 Diabetes - NIDDM; Hypertension; Lupus; Rheumatoid Arthritis; rv - PSHx: :41 hand SX for neuropthy; tubal ; rv - Immunization history:: Adult Immunizations. - Infectious Disease History:: Denies. - Social history:: Smoking status: Patient denies any tobacco usage or history of. Screenin:42 [facility] ED Fall Risk Assessment (Adult) History of falling in the last 3 months, rv including since admission No falls in past 3 months (0 pts) Score/Fall Risk Level 0 - 2 = Low Risk Oriented to surroundings, Maintained a safe environment, Educated pt \T\ family on fall prevention, incl call for assistance when getting out of bed, Assessed \T\ reinforced patient's understanding of fall precautions. Abuse screen: Denies threats or abuse. Denies injuries from another. Nutritional screening: No deficits noted. Tuberculosis screening: No symptoms or risk factors identified. Assessment: 03:11 Reassessment: Patient denies pain at this time. Patient states feeling better. Patient rv states symptoms have improved. Vital Signs: 01:39 BP 182 / 93; Pulse 85; Resp 17; Temp 98; Pulse Ox 100% ; Weight 81.65 kg; Height 5 ft. rv 2 in. ; 02:36 BP 184 / 84; ec2 03:11 BP 154 / 87; Pulse 81; Resp 18; Temp 98; Pulse Ox 98% on R/A; rv 01:39 Body Mass Index 32.92 (81.65 kg, 157.48 cm) rv ED Course: 01:30 Patient arrived in ED. gm2 01:36 Tremayne Will MD is Attending Physician. ec2 01:39 Dony Cervantes, SULEMA is Primary Nurse. rv 01:41 Triage completed. rv 01:41 Arm band placed on right wrist. rv 01:42 Patient has correct armband on for positive identification. Client placed on continuous rv cardiac and pulse oximetry monitoring. NIBP monitoring applied. 01:42 No provider procedures requiring assistance completed. rv 02:04 Initial lab(s) drawn, by me, sent to lab. Inserted saline lock: 20 gauge in left rv forearm, using aseptic technique. Blood collected. 02:04 BMP Sent. rv 02:04 CBC with Diff Sent. rv 03:12 IV discontinued, intact, bleeding controlled, No redness/swelling at site. Pressure rv dressing applied. Administered Medications: 02:03 Drug: NS 0.9% IV 1000 ml IV at 1 bolus Per protocol; 1000 mL bolus Route: IV; Rate: 1 rv bolus; Site: left forearm; 03:11 Follow up: IV Status: Completed infusion; IV Intake: 1000ml rv 02:03 Drug: metoCLOPramide IVP 10 mg IVP once; over 1 to 2 minutes Route: IVP; Site: left rv forearm; 03:11 Follow up: Response: No adverse reaction; Marked relief of symptoms rv 02:03 Drug: diphenhydrAMINE IVP 25 mg IVP once Route: IVP; Site: left forearm; rv 03:11 Follow up: Response: No adverse reaction; Marked relief of symptoms rv 02:04 Drug: Ketorolac IVP 15 mg IVP once Route: IVP; Site: left forearm; rv 03:11 Follow up: Response: No adverse reaction; Marked relief of symptoms rv Medication: 01:42 VIS not applicable for this client. rv Intake: 03:11 IV: 1000ml; Total: 1000ml. rv Outcome: 02:48 Discharge ordered by MD. [email or web address] 03:12 Discharged to home ambulatory, with family, rv 03:12 Condition: good 03:12 Discharge instructions given to patient, Instructed on discharge instructions, follow up and referral plans. Demonstrated understanding of instructions, follow-up care, 03:12 Patient left the ED. rv Signatures: Dony Cervantes, RN RN rv Tremayne Will MD MD ec2 Hyacinth Tobin 2 Corrections: (The following items were deleted from the chart) 01:41 01:41 Allergies: Codeine; rv rv 01:42 01:42 Assist provider with bone marrow aspiration rv rv
--- NOTE | 2023-11-25 02:48 | EDPHYS ---
Physician Documentation [facility] Name: Dinorah Riddle Age: 73 yrs Sex: Female : 1950 Arrival Date: 11/25/2023 Time: 01:25 Bed 3 Private MD: ED Physician Tremayne Will HPI: 11/24 01:42 This 73 yrs old Black Female presents to ER via Ambulatory with complaints of High ec2 Blood Pressure, Headache. 01:42 Patient arrives today for evaluation of elevated blood pressure as well as headache. ec2 Patient reports that she been having headaches for several days, states that she was told she has a sinus headache. Patient reports no nausea or vomiting, denies any trauma or injuries. Patient reports that she checked her blood pressure and was noted to be in the 190s which is the primary reason she is here. Patient reports no chest pain or difficulty breathing, denies abdominal pain, denies any recent illnesses.. Historical: - Allergies: 01:41 shrimp; rv 01:41 Codeine; rv - PMHx: 01:41 Diabetes - NIDDM; Hypertension; Lupus; Rheumatoid Arthritis; rv - PSHx: 01:41 hand SX for neuropthy; tubal ; rv - Immunization history:: Adult Immunizations. - Infectious Disease History:: Denies. - Social history:: Smoking status: Patient denies any tobacco usage or history of. ROS: 01:42 Constitutional: as per hpi ec2 Exam: 01:42 Constitutional: GEN: NAD Head: atraumatic Eyes: EOMI Ears: External ears are ec2 normal. CV: regular rate LUNGS: no respiratory distress ABD: non-distended SKIN: no evidence of rashes MSK: no evidence of trauma NEURO: moves all extremities equally, cranial nerves II through XII intact and strength intact. Vital Signs: 01:39 BP 182 / 93; Pulse 85; Resp 17; Temp 98; Pulse Ox 100% ; Weight 81.65 kg; Height 5 ft. rv 2 in. ; 02:36 BP 184 / 84; ec2 03:11 BP 154 / 87; Pulse 81; Resp 18; Temp 98; Pulse Ox 98% on R/A; rv 01:39 Body Mass Index 32.92 (81.65 kg, 157.48 cm) rv MDM: 01:37 Patient medically screened. ec2 01:42 Data reviewed: vital signs. ED course: Patient arrives today for evaluation of elevated ec2 blood pressure as well as headache. Examination markable for neuro intact individual is otherwise in no acute distress has been having headache symptoms for several days. Will obtain lab work to evaluate for renal abnormalities as well as electrolyte disturbances and anemia. Otherwise I considered intracranial process such as mass and bleed however patient descriptors give me a lower suspicion for these. Will treat the patient symptoms and reassess. . 02:31 ED course: Metabolic profile shows hemolyzed specimen with minimal hyperkalemia at 5.3, ec2 appropriate renal function. On reassessment patient remains well-appearing in no acute distress, no evidence of endorgan dysfunction, no notes suggest aortic dissection or ACS given lack of associated symptoms, no renal failure, patient with nonfocal exam to suggest intracranial pathology. Will discharge home. Return precautions given. . 11/24 01:42 Order name: CBC with Diff; Complete Time: 02:28 ec2 11/24 01:42 Order name: BMP; Complete Time: 02:31 ec2 Administered Medications: 02:03 Drug: NS 0.9% IV 1000 ml IV at 1 bolus Per protocol; 1000 mL bolus Route: IV; Rate: 1 rv bolus; Site: left forearm; 03:11 Follow up: IV Status: Completed infusion; IV Intake: 1000ml rv 02:03 Drug: metoCLOPramide IVP 10 mg IVP once; over 1 to 2 minutes Route: IVP; Site: left rv forearm; 03:11 Follow up: Response: No adverse reaction; Marked relief of symptoms rv 02:03 Drug: diphenhydrAMINE IVP 25 mg IVP once Route: IVP; Site: left forearm; rv 03:11 Follow up: Response: No adverse reaction; Marked relief of symptoms rv 02:04 Drug: Ketorolac IVP 15 mg IVP once Route: IVP; Site: left forearm; rv 03:11 Follow up: Response: No adverse reaction; Marked relief of symptoms rv Disposition Summary: 11/25/23 02:48 Discharge Ordered Notes: Location: Home ec2 Problem: chronic ec2 Symptoms: are unchanged ec2 Condition: Stable ec2 Diagnosis - Headache ec2 - Asymptomatic Hypertension ec2 - Other secondary hypertension ec2 Followup: ec2 - With: Private Physician - When: - Reason: Re-evaluation by your physician Discharge Instructions: - Discharge Summary Sheet ec2 - General Headache Without Cause ec2 Forms: - Medication Reconciliation Form ec2 - Thank You Letter ec2 - Antibiotic Education ec2 - Prescription Opioid Use ec2 - Patient Portal Instructions ec2 - Leadership Thank You Letter ec2 Signatures: Dispatcher [employer] Dony Orozco RN RN rv Tremayne Will MD MD ec2 Corrections: (The following items were deleted from the chart) 01:41 01:41 Allergies: Codeine; rv rv 02:40 02:31 ED course: Metabolic profile shows hemolyzed specimen with minimal hyperkalemia ec2 at 5.3, appropriate renal function. Will discharge home. Return precautions given. . ec2
[2023-11-25 11:38] VITALS: BP 154/87; TEMP 98; O2SAT 98
== END 2023-11-25 03:12 | disposition home or self-care (01) ==
LOC: ER 01:25
DX: R51.9 Headache, unspecified (principal); I10 Essential (primary) hypertension; I15.8 Other secondary hypertension; E11.9 Type 2 diabetes mellitus without complications; Z88.5 Allergy status to narcotic agent; Z91.013 Allergy to seafood
CPT/HCPCS: 96361; 85025; 80048; 36415; 96375; 96374; 99284; J2765; J1200; J7030